=== PATIENT | female | born 1980 | race Caucasian/White ===

== ENCOUNTER → 2021-10-09 | Outpatient (CLI) | payer OTHER | LOC: EXRD 10-04 11:00 | DX: M79.89 Other specified soft tissue disorders (principal) | CPT/HCPCS: 93971 ==

== ENCOUNTER → 2021-10-26 | Outpatient (CLI) | payer OTHER ==
[2021-10-27 08:11] LABS: ESTRADIOL 33.6 pg/mL (.); PROLACTIN 32.4 ng/mL (4.8-23.3)
[2021-10-28 12:09] LABS: INSULIN 95.5 uIU/mL (2.6-24.9)
[2021-10-30 14:16] LABS: TESTOSTERONE, SERUM 76 ng/dL (8-60)
== END ==
LOC: LAB 07:59
PROVIDERS: Physician Assistant
DX: N92.6 Irregular menstruation, unspecified (principal); R23.2 Flushing
CPT/HCPCS: 36415; 82627; 82670; 82947; 83001; 83002; 84146; 84402; 84403; 84443; 84702

== ENCOUNTER → 2021-11-07 | Outpatient (CLI) | payer OTHER | LOC: US 11-06 10:30 → MAMO 11-06 13:30 | DX: R92.8 Other abnormal and inconclusive findings on diagnostic imaging of breast (principal); N60.01 Solitary cyst of right breast | CPT/HCPCS: 76641-RT; 77065; G0279 ==

== ENCOUNTER → 2021-12-17 | Outpatient (CLI) | payer OTHER | LOC: KOH-I 08:00 | DX: R74.01 Elevation of levels of liver transaminase levels (principal); K76.0 Fatty (change of) liver, not elsewhere classified | CPT/HCPCS: 76705 ==

== ENCOUNTER 2022-01-13 21:44 | Emergency (ER) | payer OTHER ==
[2022-01-13 22:30] LABS: HEMOGLOBIN 13.6 gm/dl (12.3-15.3); RED BLOOD COUNT 4.75 M/UL (4.00-5.10); WHITE BLOOD COUNT 11.1 K/UL (4.5-11.0)
[2022-01-14] MEDS ORDERED: K-TAB ER20 MEQ PO (01:11)
== END 2022-01-14 01:48 | disposition home or self-care (01) ==
LOC: ER1 21:44
PROVIDERS: Physician Assistant Medical
DX: R07.89 Other chest pain (principal); E87.6 Hypokalemia
CPT/HCPCS: 71045; 80053; 82550; 82553; 83690; 84484; 85025; 93005; 99285

== ENCOUNTER → 2022-02-05 | Outpatient (CLI) | payer OTHER ==
[~2022-02-05] MED LIST: BLACK COHOSH40 M1 PO; CETIRIZINE HCL10 MG PO; ESCITALOPRAM OXA5 MG PO; FAMOTIDINE20 MG PO; GLIPIZIDE5 MG PO; HYDROCHLOROTHIA25 MG PO; K-TAB ER20 MEQ PO; LACTULOSE10 GM/15 M PO; LINZESS145 MCG PO; LIPITOR80 MG PO; OMEPRAZOLE40 MG PO; ONE DAILY MULT1 EAC1 PO; OZEMPIC; PROBIOTIC; SPIRONOLACTONE25 MG PO; TRAZODONE HCL100 MG PO; VITAMIN D250 MCG PO
[2022-02-05 11:03] LABS: HEMOGLOBIN 13.3 gm/dl (12.3-15.3); RED BLOOD COUNT 4.65 M/UL (4.00-5.10); WHITE BLOOD COUNT 11.7 K/UL (4.5-11.0)
== END ==
LOC: OPSV2 10:00
PROVIDERS: Obstetrics & Gynecology
DX: Z01.812 Encounter for preprocedural laboratory examination (principal); N91.2 Amenorrhea, unspecified
CPT/HCPCS: 80053; 81001; 85025

== ENCOUNTER → 2022-02-14 | Day surgery (SDC) | payer OTHER | END | disposition home or self-care (01) | LOC: OR 06:24 | DX: N91.1 Secondary amenorrhea (principal); E11.9 Type 2 diabetes mellitus without complications; E66.01 Morbid (severe) obesity due to excess calories; Z68.41 Body mass index [BMI] 40.0-44.9, adult; Z88.1 Allergy status to other antibiotic agents; Z88.5 Allergy status to narcotic agent; Z88.8 Allergy status to other drugs, medicaments and biological substances; Z79.84 Long term (current) use of oral hypoglycemic drugs; Z79.899 Other long term (current) drug therapy | CPT/HCPCS: 82962; 84703; J2405; J2704; J3010 ==

== ENCOUNTER → 2022-03-19 | Outpatient (CLI) | payer OTHER | LOC: KOH-I 16:18 | DX: M54.50 Low back pain, unspecified (principal); M51.36 Other intervertebral disc degeneration, lumbar region | CPT/HCPCS: 72100 ==

== ENCOUNTER → 2022-04-09 | Outpatient (CLI) | payer OTHER | LOC: KOH-I 03-24 13:00 → HEART 5 04-02 11:30 | DX: R29.898 Other symptoms and signs involving the musculoskeletal system (principal) ==